=== PATIENT | female | born 1955 | race Caucasian/White ===

== ENCOUNTER → 2016-10-01 16:01 | Outpatient (CLI) | payer OTHER ==
[~2016-10-01 16:01] MED LIST: AMBIEN10 MG PO; CYCLOBENZAPRINE10 MG PO; GLUCOPHAGE500 MG PO; HYDROCHLOROTHIA25 MG GT; KLOR-CON M2020 MEQ PO; MIRAPEX0.125 MG PO; NEURONTIN600 MG PO; PRAVACHOL40 MG PO; RELAFEN750 MG PO; SYNTHROID75 MCG PO; TENORMIN50 MG PO; ULTRAM50 MG PO
[2016-11-12 07:06] VITALS: BMI 39.2
== END | disposition home or self-care (01) ==
LOC: D.MAMMO 10:45
DX: Z12.31 Encounter for screening mammogram for malignant neoplasm of breast (principal)

== ENCOUNTER → 2016-10-29 17:49 | Outpatient (CLI) | payer OTHER ==
[2016-11-12 07:06] VITALS: BMI 39.2
== END | disposition home or self-care (01) ==
LOC: D.MAMMO 10:30
DX: R92.8 Other abnormal and inconclusive findings on diagnostic imaging of breast (principal)

== ENCOUNTER 2016-11-12 06:18 | Outpatient (CLI) | payer OTHER ==
[~2016-11-12] VITALS: Ht 170.2 cm; Wt 113.6 kg
--- NOTE | ~2016-11-12 | HEMODYNAMI ---
PATIENT:RAO GOODEN MEDICAL RECORD: [id number] : 51 LOCATION:D.CAT ADMISSION DATE: 11/12/16 Generatedon:11/12/20168:53 Patient name: RAO GOODEN Patient #: [id number] SSN: : 1955 Date of study: 11/12/2016 Page: Of Hemodynamic Procedure Report Patient Data Patient Demographics Procedure consent was obtained First Name: RAO Gender: Female Last Name: BERKLEY : 1955 [facility] Initial: H Age: 60 year(s) Patient #: [id number] Race: Unknown Additional ID: [id number] Contact details Address: [address] [place] [address] rd State: [place] City: [facility] Zip code: [address] Past Medical History Allergies Allergen Reaction Date Comments Reported Codeine 11/12/2016 Other allergy 11/12/2016 Flagyl Admission Admission Data Admission Date: 11/12/2016 Admission Time: 6:18 Lab Results Lab Result Date: 11/12/2016 Lab Result Time: 0:00 Biochemistry Name Units Result Min Max Creatinine mg/dl 0.9 --(-*--)-- 0.6 1.3 CBC Name Units Result Min Max Hemoglobin g/dl 13.5 --(*---)-- 13.5 17.5 Procedure Procedure Types Cath Procedure Diagnostic Procedure C [facility] w/Coronaries Miscellaneous Procedures Moderate Sedation up to 15 minutes Procedure Description Procedure Date Procedure Date: 11/12/2016 Procedure Start Time: 8:39 Procedure End Time: 8:51 Procedure Staff Name Function Barry Naqvi MD Performing Physician Feng Ureña RT Scrub Sidra Sheldon RN Nurse Arabella Flores RT Monitor Procedure Data Cath Procedure Fluoroscopy Diagnostic fluoroscopy Total fluoroscopy Time: 2.1 time: 2.1 min min Diagnostic fluoroscopy Total fluoroscopy dose: 429 dose: 429 mGy mGy Contrast Material Contrast Material Type Amount (ml) Isovue 300 53 Entry Location Entry Primary Successful Side Size Upsize Upsize Entry Closure Phelps ccessful Closure Location (Fr) 1 (Fr) 2 (Fr) Remarks Device Remarks Radial Right 6 Fr Mechanical artery Short Compression Estimated blood loss: 10 ml Diagnostic catheters Device Type Used For End Catheter Placement Terumo Optitorque 5Fr LV Angiography Oneida 4.5 catheter Terumo Optitorque 5Fr Left Coronary Oneida 4.5 catheter Angiography Terumo Optitorque 5Fr Right Coronary Oneida 4.5 catheter Angiography Procedure Complications No complications Procedure Medications Medication Administration Route Dosage Oxygen NC 2 l/min Lidocaine 2% added to field 20 Heparin Flush Bag added to field 2 bags (1000units/500ml NS) 0.9% NaCl I.V. 100 ml/hr Versed I.V. 1 mg Fentanyl I.V. 50 mcg Radial Cocktail I.A. 1 syringe (Verapomil 2mg/Nitro 400mcg/Heparin 1500units) Versed I.V. 1 mg Fentanyl I.V. 50 mcg Versed I.V. 1 mg Fentanyl I.V. 50 mcg Hemodynamics Rest Heart Rate: 71 (bpm) Pressure Samples Time Site Value (mmHg) Purpose Heart Use Rate(bpm) 8:43 LV 95/6,17 EDP 62 8:43 AO 96/58(76) Pullback 70 8:43 LV 94/10,21 Pullback 70 Gradients Valve Time Site 1 Site 2 Mean SEP/DFP Peak To Heart Use (mmHg) (sec/min) Peak Rate (mmHg) (bpm) Aortic 8:43 LV AO 0 5 0 70 94/10,21 96/58(76) Calculations Valve P-P Mean Valve Index Valve Source Name Gradient Area Flow (cm2) Aortic 0 0 0 0 Snapshots Pre Cath Intra NCS Post Cath Vital Signs Time Heart Resp SPO2 etCO2 [id number] NIBP Rhythm Pain Sedation Rate (ipm) (%) (mmHg) (mmHg) (mmHg) Status Level (bpm) 8:25:31 70 15 98 0 0 116/71(96) NSR 0 (11) 10(A) , No pain 8:29:45 70 17 95 0 0 110/72(87) NSR 0 (11) 10(A) , No pain 8:33:57 73 19 96 0 0 110/69(87) NSR 0 (11) 10(A) , No pain 8:38:10 72 16 94 0 0 94/62(0) NSR 0 (11) 9(A) , No pain 8:43:06 68 18 93 0 0 93/56(79) NSR 0 (11) 9(A) , No pain 8:48:08 72 16 94 0 0 106/62(91) NSR 0 (11) 9(A) , No pain 8:53:04 71 16 96 0 0 105/68(88) NSR 0 (11) 10(A) , No pain Medications Time Medication Route Dose Verified Delivered Reason Notes E ffectiveness by by 8:22:35 Oxygen NC 2 l/min Barry Buffie used for Driss Sheldon RN procedure 8:22:55 Lidocaine 2% added 20ml Barry Barry for local to vial Driss Naqvi MD anesthetic field 8:23:03 Heparin Flush added 2 bags Barry Barry used for Bag to Driss Naqvi MD procedure (1000units/500ml field NS) 8:23:16 0.9% NaCl I.V. 100 Barry Buffie Per ml/hr Driss Sheldon RN physician 8:36:00 Fentanyl I.V. 50 mcg Barry Buffie for sedation Driss Sheldon RN 8:36:54 Versed I.V. 1 mg Barry Buffie for sedation Driss Sheldon RN 8:41:13 Versed I.V. 1 mg Barry Buffie for sedation Driss Sheldon RN 8:41:16 Fentanyl I.V. 50 mcg Barry Buffie for sedation Driss Sheldon RN 8:42:09 Radial Cocktail I.A. 1 Barry Barry for (Verapomil syringe Driss Naqvi MD vasodilation 2mg/Nitro 400mcg/Heparin 1500units) 8:45:14 Versed I.V. 1 mg Barry Buffie for sedation Driss Sheldon RN 8:45:17 Fentanyl I.V. 50 mcg Barry Buffie for sedation Driss Sheldon RN Procedure Log Time Note 8:04:17 Sidra Sheldon RN sent for patient. Start room use. 8:04:18 Time tracking: Regular hours 8:04:22 Plan of Care:Hemodynamics will remain stable., Cardiac rhythm will remain stable., Comfort level will be maintained., Respiratory function will remain adequate., Patient/ family verbilizes understanding of procedure., Procedure tolerated without complication., Recovers from procedure without complications.. 8:12:51 Patient received from Pre/Post Procedure Room to CCL 1 Alert and oriented. Tansferred to table in Supine position. 8:12:52 Warm blankets applied, and shante hugger turned on for patient comfort. 8:12:52 Correct patient and procedure confirmed by team. 8:12:53 Signed procedure consent form obtained from patient. 8:12:54 ECG and BP/O2 sat monitors applied to patient. 8:12:55 Full Disclosure recording started 8:22:35 Oxygen 2 l/min NC was given by Sidra Sheldon RN; used for procedure; 8:22:55 Lidocaine 2% 20ml vial added to field was given by Barry Naqvi MD; for local anesthetic; 8:23:03 Heparin Flush Bag (1000units/500ml NS) 2 bags added to field was given by Barry Naqvi MD; used for procedure; 8:23:16 0.9% NaCl 100 ml/hr I.V. was given by Sidra Sheldon RN; Per physician; 8:24:20 Vital chart was started 8:24:24 Rhythm: sinus rhythm 8:24:32 H&P Date Dictated: 11/09/2016 Within 30 days and on chart., H&P Addendum completed by physician on day of procedure. (MUST COMPLETE FOR ALL OUTPATIENTS). 8:24:34 Pre-procedure instructions explained to patient. 8:24:34 Pre-op teaching completed and patient verbalized understanding. 8:24:35 Family in waiting room. 8:24:37 Patient NPO since Midnight. 8:24:47 Patient allergic to Codeine 8:25:02 Patient allergic to Other allergyFlagyl 8:25:07 Is the patient allergic to Iodine/contrast media? No. 8:25:09 Is patient on blood thinner?No 8:25:24 Patient diabetic? Yes. 8:25:29 If diabetic: On Metformin? Yes 8:25:32 If on Metformin: Last Dose? 11/10/2016 8:25:36 Previous problem with sedation/anesthesia? No ? 8:25:37 Snore? Yes 8:25:38 Sleep apnea? No 8:25:39 Deviated septum? No 8:25:40 Opens mouth fully? Yes 8:25:40 Sticks out tongue? Yes 8:25:51 Airway obstruction? No ? 8:25:54 Dentures? No ? 8:25:57 Pre procedure: right dorsailis pedis pulse 2+ Normal; easily identifiable; not easily obliterated 8:25:59 Modified John's test Ulnar < 7 seconds 8:26:03 Patient pain scale 0/10 ?. 8:26:09 IV patent on arrival in left hand with 0.9% NaCl at [facility]. 8:27:10 Lab Result : Hemoglobin 13.5 g/dl 8:27:10 Lab Result : Creatinine 0.9 mg/dl 8:27:14 Lab results completed and on chart. 8:27:20 Right groin area was prepped with chlora-prep and draped in sterile fashion 8:27:22 Alarms reviewed by R. N. 8:27:22 Sharps counted by scrub and verified by R.N. 8:27:28 Use device set Radial Dx 8:27:29 Acist Syringe opened to sterile field. 8:27:30 Medline Cath Pack opened to sterile field. 8:27:30 Bag Decanter opened to sterile field. 8:27:31 Terumo 6Fr Slender Glidesheath opened to sterile field. 8:27:32 St Yariel 260cm J .035 wire opened to sterile field. 8:27:32 Acist Hand Control opened to sterile field. 8:27:33 Acist Manifold opened to sterile field. 8:27:33 Tegaderm 4 x 4 opened to sterile field. 8:31:10 Baseline sample Acquired. 8:34:16 Final Timeout: patient, procedure, and site verified with staff and physician. All members of the team are in agreement. 8:34:21 Right Radial site verified by team. 8:34:26 Physical assessment completed. ASA score P 2 - A patient with mild systemic disease as per Barry Naqvi MD. 8:34:30 Sedation plan: IV Moderate Sedation Versed, Fentanyl 8:36:00 Fentanyl 50 mcg I.V. was given by Sidra Sheldon RN; for sedation; 8:36:54 Versed 1 mg I.V. was given by Sidra Sheldon RN; for sedation; 8:37:06 Zero performed for pressure channel P1 8:38:13 Vital chart was stopped 8:39:34 Vital chart was started 8:39:38 Procedure started. 8:39:45 Local anesthetic to right radial artery with Lidocaine 2% by Barry Naqvi MD.INITIAL ACCESS ONLY 8:40:15 A 6 Fr Short sheath was inserted into the Right Radial artery 8:41:13 Versed 1 mg I.V. was given by Sidra Sheldon RN; for sedation; 8:41:16 Fentanyl 50 mcg I.V. was given by Sidra Sheldon RN; for sedation; 8:41:31 A Terumo Optitorque 5Fr Oneida 4.5 catheter was advanced over the wire and used for LV Angiography. 8:42:09 Radial Cocktail (Verapomil 2mg/Nitro 400mcg/Heparin 1500units) 1 syringe I.A. was given by Barry Naqvi MD; for vasodilation; 8:43:33 LV gram done using HUANG 8:43:37 EF : 55 % 8:43:39 LV hemodynamics recorded. 8:43:40 Injector settings: Ml/sec: 5, Volume: 15, 8:44:08 A Terumo Optitorque 5Fr Oneida 4.5 catheter was advanced over the wire and used for Left Coronary Angiography. 8:45:14 Versed 1 mg I.V. was given by Sidra Sheldon RN; for sedation; 8:45:17 Fentanyl 50 mcg I.V. was given by Sidra Sheldon RN; for sedation; 8:45:39 A Terumo Optitorque 5Fr Oneida 4.5 catheter was advanced over the wire and used for Right Coronary Angiography. 8:46:54 Catheter removed. 8:47:12 Sheath removed intact; hemostasis achieved with Mechanical Compression to the Right Radial artery. 8:47:21 Terumo TR Band Standard opened to sterile field. 8:47:23 Procedure ended.(Physican Out) 8:47:47 Fluoroscopy time 02.10 minutes. 8:47:51 Fluoroscopy dose: 429 mGy 8:47:51 Flurop Dose total: 429 8:47:55 Contrast amount:Isovue 300 53ml. 8:47:56 Sharps counted by scrub and verified by R.N. 8:47:59 Insertion/operative site no bleeding no hematoma. 8:48:02 TR band inflated with 12cc of air. 8:48:11 Post right radial artery:stable, clean and dry 8:48:13 Post Procedure Pulses reassessed and unchanged 8:48:33 Post-procedure physical assessment completed. ASA score P 2 - A patient with mild systemic disease as per Barry Naqvi MD. 8:48:35 Post procedure rhythm: unchanged. 8:48:38 Estimated blood loss: 10 ml 8:48:40 Post procedure instruction explained to patient.Patient verbalizes understanding. 8:48:47 Patient needs reinforcement of post procedure teaching. 8:48:54 Procedure type changed to Cath procedure, Diagnostic procedure, LHC, LHC w/Coronaries, Miscellaneous Procedures, Moderate Sedation up to 15 minutes 8:49:23 Cook 21G 4cm Radial Needle opened to sterile field. 8:50:43 Procedure Complication : No complications 8:50:46 See physician's report for complete and final results. 8:50:47 Procedure and supply charges have been captured, reviewed, submitted and are correct. 8:50:49 Report given to Pre/Post Procedure Room. 8:51:00 Patient transfered to Pre/Post Procedure Room with Stretcher. 8:51:05 Procedure ended. 8:51:05 Full Disclosure recording stopped 8:51:10 End room use (Document Last) 8:53:44 Vital chart was stopped Device Usage Item Name Manufacture Quantity Catalog Hospital Part Current Minimal Lot# / Number Charge Number Stock Stock Serial# Code Acist Acist 1 39163 540348 [id number] [id number] 20 Syringe [employer] Medline Cardinal 1 [id number] 496156 23512 579557 5 Cath Pack Health Bag Microtek 1 2002S 116087 51341 474292 5 [employer] Terumo 6Fr Terumo 1 [id number] 889199 407364 531096 [address] St Yariel 1 013840 185280 357248 870922 30 260cm J .035 wire Acist Hand Acist 1 97799 092239 913073 498214 5 Control [employer] Inc Acist Acist 1 57158 652600 174959 997894 5 Manifold [employer] Inc Tegaderm 4 3M 1 1626W 844331 778143 092440 5 x 4 Terumo Terumo 1 40-5012 974219 529256 074048 5 Optitorque 5Fr Oneida 4.5 catheter Terumo TR Terumo 1 [id number] 824967 681018 379234 40 Band Standard Cook 21G [place] [address] Q84810 818460 072048 5 4cm Radial Needle Signature Audit [place] Stage Time Signature Unsigned Intra-Procedure 11/12/2016 Arabella 8:53:42 AM Counts RT(R) Signatures Monitor : Arabella Signature : Counts RT Date : Time : [place] [id number] [place] [address]
[2016-11-12] MEDS ORDERED: TENORMIN50 MG PO (06:43)
[2016-11-12] MEDS ORDERED: HYDROCHLOROTHIA25 MG GT (06:43)
[2016-11-12] MEDS ORDERED: SYNTHROID75 MCG PO (06:44)
[2016-11-12] MEDS ORDERED: RELAFEN750 MG PO (06:44)
[2016-11-12] MEDS ORDERED: GLUCOPHAGE500 MG PO (06:45)
[2016-11-12] MEDS ORDERED: KLOR-CON M2020 MEQ PO (06:46)
[2016-11-12] MEDS ORDERED: NEURONTIN600 MG PO (06:46)
[2016-11-12] MEDS ORDERED: MIRAPEX0.125 MG PO (06:47)
[2016-11-12] MEDS ORDERED: PRAVACHOL40 MG PO (06:47)
[2016-11-12] MEDS ORDERED: CYCLOBENZAPRINE10 MG PO (06:48)
[2016-11-12] MEDS ORDERED: AMBIEN10 MG PO (06:49)
[2016-11-12] MEDS ORDERED: ULTRAM50 MG PO (06:50)
[2016-11-12 07:06] VITALS: BP 122/70; Ht 170.2 cm; Wt 113.6 kg
[2016-11-12 07:14] LABS: BASOPHILS 0.5 % (0.0-2.0); HEMATOCRIT 39.9 % (36.0-48.0); HEMOGLOBIN 13.5 g/dL (12-16); IMMATURE GRANULOCYTES 0.3 % (0-5); LYMPHOCYTES 37.9 % (15-50); MCH 31.3 pg (26.0-34.0); MCHC 33.8 g/dL (31.0-37.0); MCV 92.4 fL (80.0-100.0); MEAN PLATELET VOLUME 9.2 fL (7.4-10.4); MONOCYTES 8.1 % (2-11); NEUTROPHILS 51.2 % (40-80); PLATELET COUNT 202 10x3/uL (130-400); RBC 4.32 10x6/uL (4.00-5.40); RDW 12.9 % (11.5-14.5); WBC 9.1 10x3/uL (4.8-10.8)
[2016-11-12 07:21] LABS: CALCIUM 9.1 mg/dL (8.5-10.1); CARBON DIOXIDE 29.4 mmol/L (21.0-32.0); CREATININE - SERUM 0.9 mg/dL (0.6-1.3); POTASSIUM - SERUM 3.4 mmol/L (3.5-5.1)
--- NOTE | 2016-11-12 09:14 | NUR ---
HR 68 CHEST PAIN DENIED BP 115/78 TR BAND TO R/WRIST CDI NO BLEEDING NO HEMATOMA NOTED. INSTRUCTED PATIENT TO KEEP RUE STRAIGHT NO BENDING OR FLEXING OF WRIST.
--- NOTE | 2016-11-12 09:43 | NUR ---
RESTING QUIETLY WITH NO DISTRESS NOTED VSS TR BAND TO R/WRIST CDI NO BLEEDING NO HEMATOMA NOTED. AT BEDSIDE
--- NOTE | 2016-11-12 10:31 | NUR ---
VSS WITH CHEST PAIN DENIED TR BAND REMAINS TO R/WRIST CDI NO BLEEDING NO HEMATOMA NOTED. SANDWICH TRAY TO BEDSIDE
--- NOTE | 2016-11-12 11:22 | NUR ---
4 CC AIR REMOVED FROM TR BAND WITH NO BLEEDING NO HEMATOMA NOTED
--- NOTE | 2016-11-12 12:19 | NUR ---
4 CC AIR REMOVED FROM TR BAND WITH NO BLEEDING NO HEMATOMA NOTED. PIV REMOVED FROM LEFT ARME WITH DRESSING APPLIED. PATIENT UP TO GET DRESSED FOR DISCHARGE HOME
--- NOTE | 2016-11-12 12:28 | NUR ---
REMAINING AIR REMOVED FROM TR BAND, DRESSING PLACED TO SITE. DISCHARGE INSTRUCTIONS GIVEN, PT AND FAMILY VERBALIZED UNDERSTANDING.
--- NOTE | 2016-11-12 12:35 | NUR ---
PT TAKEN OUT VIA WHEELCHAIR BY MEMBER OF CATH CARE TEAM. LEFT FACILITY WITH FAMILY MEMBER AND ALL PERSONAL BELONGINGS.
--- NOTE | 2016-12-08 08:17 | OP ---
PATIENT NAME: RAO GOODEN MEDICAL RECORD: [id number] :51 LOCATION:D.CAT ADMISSION DATE: SURGEON: LAMAR DALY M.D. DATE OF OPERATION: 11/12/2016 Catheterization Report REFERRING PHYSICIAN: Harsha Copeland MD. PROCEDURES PERFORMED: 1. Selective coronary angiography. 2. Left heart catheterization with ventriculogram. INDICATION: A 60-year-old woman presents with abnormal cardiac stress testing, continues symptoms of angina. EQUIPMENT USED: A 5-Emirati Clearbrook 4.5 catheter. TECHNIQUE: A 6-Emirati sheath was inserted in retrograde fashion in the right radial artery. Next, selective coronary angiography was performed in standard 5-Emirati Clearbrook 4.5 catheter. Left heart catheterization performed using the Clearbrook catheter as well. CORONARY ANATOMY: 1. Left main: Left main trunk is moderate in caliber. It gives rise to the LAD and circumflex. It has no obstruction. 2. LAD: This is a moderate caliber vessel, which terminates proximal to the apex. It is a smooth-walled vessel and angiographically normal. 3. Circumflex: This vessel is moderate in caliber. It provides the lateral branch in mid segment. The circumflex and lateral branch are smooth-walled vessels and angiographically normal. 4. Right coronary: This vessel is quite large and dominant. The PDA and posterolateral branch encompass the apex. This vessel is smooth-walled and angiographically normal. 5. Left ventricle: Left ventricle is normal in size and function. No wall motion abnormalities are seen. Estimated ejection fraction is 55%. IMPRESSION: 1. Normal coronary arteries. 2. Normal left ventricular function. TRANSINT:[id number] Voice Confirmation ID: [id number] DOCUMENT ID: [id number] LAMAR DALY M.D. at 0817 CC: [id number] DICTATION DATE: 11/12/16 0852 COMMERCIAL STRIPPER: 11/12/16 1006 DEP CLI 11/12/[address] [address]
== END 2016-11-12 12:35 | disposition home or self-care (01) ==
LOC: D.CATH 06:18
PROVIDERS: Internal Medicine Cardiovascular Disease
DX: I25.119 Atherosclerotic heart disease of native coronary artery with unspecified angina pectoris (principal); R94.39 Abnormal result of other cardiovascular function study

== ENCOUNTER → 2017-11-08 14:54 | Outpatient (CLI) | payer OTHER ==
[2016-11-12 07:06] VITALS: BMI 39.2
== END | disposition home or self-care (01) ==
LOC: D.MAMMO 10:00
DX: Z12.31 Encounter for screening mammogram for malignant neoplasm of breast (principal)

== ENCOUNTER → 2018-12-20 16:41 | Outpatient (CLI) | payer MEDICARE, OTHER ==
[2016-11-12 07:06] VITALS: BMI 39.2
== END | disposition home or self-care (01) ==
LOC: D.MAMMO 12-06 15:30
PROVIDERS: ATTEND Family Medicine
DX: Z12.31 Encounter for screening mammogram for malignant neoplasm of breast (principal)

== ENCOUNTER 2019-01-26 19:00 | Outpatient (CLI) | payer MEDICARE, OTHER ==
[2016-11-12 07:06] VITALS: BMI 39.2
== END 2019-01-26 23:59 | disposition home or self-care (01) ==
LOC: D.MAMMO 19:00
PROVIDERS: ATTEND Family Medicine
DX: R92.2 Inconclusive mammogram (principal)

== ENCOUNTER 2020-02-27 19:00 | Outpatient (CLI) | payer MEDICARE, OTHER ==
[2016-11-12 07:06] VITALS: BMI 39.2
== END 2020-02-27 23:59 | disposition home or self-care (01) ==
LOC: D.MAMMO 19:00
PROVIDERS: ATTEND Family Medicine
DX: Z12.31 Encounter for screening mammogram for malignant neoplasm of breast (principal)

== ENCOUNTER → 2020-04-09 10:00 | Outpatient (CLI) | payer MEDICARE, OTHER ==
[2016-11-12 07:06] VITALS: BMI 39.2
== END | disposition home or self-care (01) ==
LOC: D.MAMMO 10:00
PROVIDERS: ATTEND Family Medicine
DX: N64.59 Other signs and symptoms in breast (principal)

== ENCOUNTER 2021-03-13 14:10 | Outpatient (CLI) | payer MEDICARE, OTHER ==
[2016-11-12 07:06] VITALS: BMI 39.2
== END 2021-03-13 23:59 | disposition home or self-care (01) ==
LOC: D.MAMMO 14:10
PROVIDERS: ATTEND Family Medicine
DX: Z12.31 Encounter for screening mammogram for malignant neoplasm of breast (principal)